=== PATIENT | female | born 1955 | race Caucasian/White ===

== ENCOUNTER → 2024-06-02 11:43 | Outpatient (REF) | payer MEDICARE, OTHER, SELFPAY | LOC: HWWDC 11:43 | PROVIDERS: ATTENDING PHYSICIAN Internal Medicine; REFERRING PHYSICIAN Obstetrics & Gynecology Gynecology | DX: Z12.31 Encounter for screening mammogram for malignant neoplasm of breast (principal) | CPT/HCPCS: 77063; 77067 ==

== ENCOUNTER 2024-10-16 18:43 | Emergency (ER) | payer SELFPAY ==
[2024-10-16 18:44] VITALS: BMI 23.7
[2024-10-16 19:22] VITALS: BP 150/92
[2024-10-16 21:24] VITALS: BP 134/74
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
[2024-10-16] MEDS: MOTRIN 600 MG PO (22:07)
== END 2024-10-16 22:52 | disposition home or self-care (01) ==
LOC: EMR 18:43
PROVIDERS: EMERGENCY PHYSICIAN Emergency Medicine; FAMILY PHYSICIAN Internal Medicine
DX: S13.4XXA Sprain of ligaments of cervical spine, initial encounter (principal); V43.52XA Car driver injured in collision with other type car in traffic accident, initial encounter
CPT/HCPCS: 99284; 70450; 72125

== ENCOUNTER → 2025-01-07 11:23 | Outpatient (REF) | payer MEDICARE, OTHER, SELFPAY | LOC: HWRAD 11:23 | PROVIDERS: ATTENDING PHYSICIAN Internal Medicine | DX: Z78.0 Asymptomatic menopausal state (principal) | CPT/HCPCS: 77080 ==